=== PATIENT | male | born 1950 | race Hispanic/Latino ===

== ENCOUNTER 2018-10-15 06:36 | Emergency (ER) | payer MEDICARE, MEDICAID ==
[2018-10-15] MEDS: Sodium Chloride 0.9% 1,000 ML IV STA (07:37)
--- NOTE | 2018-10-15 07:40 | ED PDOC ---
HPI: General Adult Time Seen by Provider: 10/15/18 07:05 Chief Complaint (Nursing): Weakness/Neurological Deficit Chief Complaint (Provider): Malaise, headache History Per: Patient History/Exam Limitations: no limitations Onset/Duration Of Symptoms: Days, Intermittent Episodes Current Symptoms Are (Timing): Still Present Additional History Per: Patient Additional Complaint(s): 68yo male, with history of diabetes, [place] [facility] [place] [facility] [place], complaining of vomiting, malaise, headache and generalized weakness. Patient states the symptoms have been present intermittently for the past 1 week. He was seen in this facility for similar complaint on 10/06 and was admitted; at that time, patient was evaluated by a it program manager and GI specialist. He denies any blood in his vomitus or stool; patient also denies any chest pain, shortness of breath, and offers no additional complaints. PMD: Sandeep Cobian Past Medical History Reviewed: Historical Data, Nursing Documentation, Vital Signs Vital Signs: Last Vital Signs Temp 98.2 F 10/15/18 06:41 Pulse 93 H 10/15/18 06:41 Resp 15 10/15/18 06:41 BP 164/85 H 10/15/18 06:41 Pulse Ox 98 10/15/18 06:41 - Medical History PMH: Anemia, Diabetes, Fractures, Gastritis, HTN Denies: Anxiety, Chronic Kidney Disease - Surgical History Surgical History: No Surg Hx - Family History Family History: States: No Known Family Hx, Unknown Family Hx - Social History Alcohol: None - Immunization History Hx Tetanus Toxoid Vaccination: No Hx Influenza Vaccination: Yes Hx Pneumococcal Vaccination: Yes - Home Medications Home Medications: Ambulatory Orders Medication Instructions Recorded RX: Dulaglutide [Trulicity] 0.75 mg SC MO 10/06/18 RX: Sitagliptin Phos/Metformin HCl 1 tab PO BID 10/06/18 [Janumet 50-500 mg Tablet] Ondansetron ODT [Zofran ODT] 4 mg PO Q6 PRN #10 odt 10/15/18 - Allergies Allergies/Adverse Reactions: Allergies Allergy/AdvReac Type Severity Reaction Status Date / Time No Known Allergies Allergy Verified 10/15/18 06:43 Review of Systems ROS Statement: Except As Marked, All Systems Reviewed And Found Negative Constitutional: Positive for: Weakness, Malaise Gastrointestinal: Positive for: Vomiting Neurological: Positive for: Dizziness Physical Exam - Reviewed Nursing Documentation Reviewed: Yes Vital Signs Reviewed: Yes - Physical Exam Appears: Positive for: Non-toxic, No Acute Distress Head Exam: Positive for: ATRAUMATIC, NORMAL INSPECTION, NORMOCEPHALIC Skin: Positive for: Normal Color Eye Exam: Positive for: EOMI, PERRL Neck: Positive for: Normal, Supple Cardiovascular/Chest: Positive for: Regular Rate, Rhythm. Negative for: Tachycardia Respiratory: Positive for: Normal Breath Sounds. Negative for: Wheezing Gastrointestinal/Abdominal: Positive for: Soft, Tenderness (right upper quadrant). Negative for: Guarding, Rebound Back: Positive for: Normal Inspection. Negative for: L CVA Tenderness, R CVA Tenderness Extremity: Positive for: Normal ROM. Negative for: Pedal Edema Neurologic/Psych: Positive for: Alert, Oriented. Negative for: Motor/Sensory Deficits - Laboratory Results Result Diagrams: 10/15/18 07:40 10/15/18 07:40 - ECG O2 Sat by Pulse Oximetry: 98 (RA) Pulse Ox Interpretation: Normal Medical Decision Making Medical Decision Makinyo male with flu like symptoms; right upper quadrant tenderness upon exam Plan: -- Labs -- US abdomen -- Rapid flu -- IV fluids -- Zofran 4mg IV -- Pepcid 20mg IV 0825 Patient negative for influenza 1127 US abdomen FINDINGS: LIVER: Measures 18.1 cm in length. Normal echogenicity of the liver parenchyma. No mass. No intrahepatic bile duct dilatation. GALLBLADDER: Unremarkable. No gallstones. COMMON BILE DUCT: Measures 4.4 mm. No stones. No dilatation. PANCREAS: Most of the pancreas is obscured by overlying bowel or stomach gas with the proximal to mid body appearing unremarkable. RIGHT KIDNEY: Measures 11.6 cm in length. Normal echogenicity. No calculus, mass, or hydronephrosis. AORTA: No aneurysmal dilatation. IVC: Unremarkable. OTHER FINDINGS: None . IMPRESSION: No suspicious findings grossly evident, however, the pancreas is largely obscured by gastrointestinal gas overlying it. The remainder of the examination appears unremarkable. patient slept 5+ hrs without distress or vomiting. Tolerating PO. DC from ED, followup GI for further evaluation as no signs acute abdomen, dehydration, hematemesis or focal neurologic issue. --- Scribe Attestation: Documented by Holley Green acting as a scribe for Gallo Pettit DO. Provider Attestation: All medical record entries made by the Scribe were at my direction and personally dictated by me. I have reviewed the chart and agree that the record accurately reflects my personal performance of the history, physical exam, medical decision making, and the department course for this patient. I have also personally directed, reviewed, and agree with the discharge instructions and disposition. Disposition - Clinical Impression Clinical Impression: Vomiting - Patient ED Disposition Is Patient to be Admitted: No Counseled Patient/Family Regarding: Studies Performed, Diagnosis, Need For Followup, Rx Given - Disposition Referrals: Roshan Hughes MD [Staff Provider] - Disposition: Routine/Home Disposition Time: 12:00 Condition: STABLE Additional Instructions: Return to ER for any new or worsening symptoms. Take medications as directed and needed. Prescriptions: Ondansetron ODT [Zofran ODT] 4 mg PO Q6 PRN #10 odt PRN Reason: Nausea/Vomiting Instructions: Nausea and Vomiting, Adult (DC) Forms: Personaling (Turkish)
[2018-10-15 07:53] LABS: BASO % 0.3 % (0.0-2.0); EOS % 0.1 % (0.0-4.0); HEMOGLOBIN 13.1 g/dL (12.0-18.0); LYMPH # 0.7 K/uL (1.0-4.3); LYMPH % 9.9 % (20.0-40.0); MEAN CELL VOLUME 91.3 fl (80.0-94.0); MEAN CORPUSCULAR HEMOGLOBIN 29.4 pg (27.0-31.0); MEAN CORPUSCULAR HGB CONC 32.2 g/dL (33.0-37.0); MEAN PLATELET VOLUME 6.7 fl (7.2-11.7); MONO # 0.8 K/uL (0.0-0.8); MONO % 11.2 % (0.0-10.0); NEUT # 5.3 K/uL (1.8-7.0); NEUT % 78.5 % (50.0-75.0); PLATELET COUNT 122 K/uL (130-400); RBC 4.47 Mil/uL (4.40-5.90); RED CELL DISTRIBUTION WIDTH 12.6 % (11.5-14.5); WHITE BLOOD COUNT 6.7 K/uL (4.8-10.8)
[2018-10-15 08:09] LABS: ALB/GLOB RATIO 1.1 (1.0-2.1); ALBUMIN 3.8 g/dL (3.5-5.0); ALT/SGPT 22 U/L (21-72); AST/SGOT 25 U/L (17-59); BLOOD UREA NITROGEN 25 mg/dl (9-20); CALCIUM 9.1 mg/dL (8.4-10.2); GFR NON-AFRICAN AMERICAN > 60
[2018-10-15 10:35] LABS: BANDS 1 % (0-2); LYMPHOCYTE 9 % (20-50); MONOCYTE 8 % (0-10); NEUTROPHIL 82 % (42-75); PLATELET ESTIMATE SLIGHTLY DECREASED (NORMAL); TOTAL CELLS COUNTED 100
--- NOTE | 2018-10-15 11:21 | US ---
Date of service: 10/15/2018 HISTORY: RUQ pain COMPARISON: None. TECHNIQUE: Sonographic evaluation of the right upper quadrant of the abdomen. FINDINGS: LIVER: Measures 18.1 cm in length. Normal echogenicity of the liver parenchyma. No mass. No intrahepatic bile duct dilatation. GALLBLADDER: Unremarkable. No gallstones. COMMON BILE DUCT: Measures 4.4 mm. No stones. No dilatation. PANCREAS: Most of the pancreas is obscured by overlying bowel or stomach gas with the proximal to mid body appearing unremarkable. RIGHT KIDNEY: Measures 11.6 cm in length. Normal echogenicity. No calculus, mass, or hydronephrosis. AORTA: No aneurysmal dilatation. IVC: Unremarkable. OTHER FINDINGS: None . IMPRESSION: No suspicious findings grossly evident, however, the pancreas is largely obscured by gastrointestinal gas overlying it. The remainder of the examination appears unremarkable.
[2018-10-15 14:54] VITALS: BP 148/72; PULSE 73; RESP 16; TEMP 98.1
[2018-10-15 15:06] VITALS: O2SAT 98
--- NOTE | 2018-10-15 21:54 | CARD ---
APPROVED REPORT Date of service: 10/15/2018 EKG Measurement Heart [id number] <Conclusion> Sinus rhythm with 1st degree AV block Right bundle branch block Left anterior fascicular block Bifascicular block Abnormal ECG
== END 2018-10-15 14:50 | disposition home or self-care (01) ==
LOC: H.ER 06:36
DX: R11.10 Vomiting, unspecified (principal); E11.9 Type 2 diabetes mellitus without complications; Z59.0 Homelessness; I10 Essential (primary) hypertension; I44.0 Atrioventricular block, first degree
CPT/HCPCS: 76705; 80053; 82948; 85025; 87804; 93005; 96361; 96374; 96375; 99284; G0480; J1885; J2405; J7030